=== PATIENT | female | born 1980 | race Caucasian/White ===

== ENCOUNTER 2016-09-04 11:02 | Emergency (ER) | payer BC, MEDICAID ==
[2016-09-04 11:24] VITALS: BP 112/61
--- NOTE | 2016-09-04 11:28 | EDM.PDOC ---
ED HPI GENERAL MEDICAL PROBLEM - General Chief Complaint: Respiratory Problem Stated Complaint: SICK X 10 DAYS Time Seen by Provider: 09/04/16 11:25 Source of Information: Reports: Patient History Limitations: Reports: No Limitations - History of Present Illness INITIAL COMMENTS - FREE TEXT/NARRATIVE: 36 yo female present with c/o non productive cough x 10 days. States that she has jsut felt bad, c/o increasing shortness of breath and tenderness to left side. No other complaints Onset Date: 08/25/16 Duration: Constant, Getting Worse Location: Reports: Chest Quality: Reports: Ache Severity: Mild Improves with: Reports: None Worsens with: Reports: Breathing Associated Symptoms: Reports: No Other Symptoms - Related Data Allergies Allergy/AdvReac Type Severity Reaction Status Date / Time Penicillins Allergy Severe Anaphylactic Verified 09/04/16 11:11 Shock azithromycin Allergy Intermediate Rash Verified 09/04/16 11:11 Home Meds: Home Meds . [No Known Home Meds] 09/04/16 [History] ED ROS GENERAL - Review of Systems Review Of Systems: ROS reveals no pertinent complaints other than HPI. ED EXAM, GENERAL - Physical Exam Exam: See Below Exam Limited By: No Limitations General Appearance: Alert, WD/WN, No Apparent Distress Neck: Normal Inspection Respiratory/Chest: No Respiratory Distress, Normal Breath Sounds, No Accessory Muscle Use, Chest Non-Tender, Crackles (RML) Cardiovascular: Normal Peripheral Pulses, Regular Rate, Rhythm, No Edema, No Gallop, No JVD, No Murmur, No Rub Neurological: Alert, Oriented, Normal Cognition, Normal Gait Course - Vital Signs Last Recorded V/S: Last Vital Signs Temp 98.9 F 09/04/16 11:07 Pulse 118 H 09/04/16 11:07 Resp 18 09/04/16 11:07 BP 112/61 09/04/16 11:07 Pulse Ox 100 09/04/16 11:07 - Orders/Labs/Meds Orders: Active Orders 24 hr Category Date Time Status Chest 2V [CR] Stat Exams 09/04/16 11:25 Taken - Re-Assessments/Exams Free Text/Narrative Re-Assessment/Exam: 09/04/16 12:10 NO acute process on x-ray. Will dc home. Departure - Departure Time of Disposition: 12:10 Disposition: DC/Tfer to [facility] Clinical Impression: Bronchitis - Discharge Information Instructions: Upper Respiratory Infection, Adult, [id number], Acute Bronchitis, [id number] Forms: ED Department Discharge Additional Instructions: TAke the medication as prescribed. Return for any worsening symptoms. - My Orders Last 24 Hours: My Active Orders 09/04/16 11:25 Chest 2V [CR] Stat - Assessment/Plan Last 24 Hours: My Active Orders 09/04/16 11:25 Chest 2V [CR] Stat
== END 2016-09-04 12:21 ==
LOC: DL.ED 11:02
DX: J40 Bronchitis, not specified as acute or chronic (principal); Z88.2 Allergy status to sulfonamides; Z88.1 Allergy status to other antibiotic agents
CPT/HCPCS: 71020; 99283